=== PATIENT | female | born 1970 | race Caucasian/White ===

== ENCOUNTER 2021-12-09 08:37 | Emergency (ER) | payer OTHER ==
[~2021-12-09] VITALS: Ht 162.5 cm; Wt 89.8 kg
[2021-12-09] MEDS ORDERED: ONDANSETRON 4 MG/2 ML (SDV) Z0FRAN IVP ONE (09:00)
[2021-12-09] MEDS ORDERED: LACTATED RINGERS 1,000 ML IV ONE (09:00)
--- NOTE | 2021-12-09 09:06 | ED Back Pain ---
General Chief Complaint: Abdominal/GI Problems Stated Complaint: LOWER LEFT SIDE BACK PAIN/VOMITING Source of Information: Patient Exam Limitations: No Limitations (ALIYA KILGORE MED STUDENT) History of Present Illness Date Seen by Provider: Dec 09, 2021 Time Seen by Provider: 08:50 Initial Comments Mrs. Robledo is a 51yo female who only has a PMH of depression presents to ED today due to back pain and vomiting. States that she has no hx kindey stones. She does not have a galbladder, appendix, or uterus. Overies still present. States at 0200 this morning she woke up with a sharp pain in her R side of her back. The pain is sharp/stabbing and rates it an 8. When asked if it radiates she states that actually it feels like it could be RLQ pain radiating into her back or vice versa. She has tried ibuprofen and azo with no relief. Did not notice anything that made the pain worse. Has never had pain like this before. 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 She does smoke. NKDA. (ALIYA KILGORE MED STUDENT) Allergies and Home Medications Allergies Coded Allergies: No Known Drug Allergies (Unverified , 12/09/21) Patient Home Medication List Home Medication List Reviewed: Yes (BREANNE GUPTA MD) Cephalexin (Cephalexin) 500 Mg Tablet, 500 MG PO TID Prescribed by: BREANNE HERNANDEZ on 12/09/21 1029 Docusate Sodium (Colace) 100 Mg Capsule, 100 MG PO DAILY Prescribed by: BREANNE HERNANDEZ on 12/09/21 1029 Ondansetron (Ondansetron Odt) 4 Mg Tab.rapdis, 4 MG SL Q4H PRN for NAUS EA/VOMITING Prescribed by: BREANNE HERNANDEZ on 12/09/21 1029 Oxycodone HCl/Acetaminophen (Percocet 5-325 mg Tablet) 1 Each Tablet, 1-2 TAB PO Q4H PRN for PAIN-MODERATE (5-7) Prescribed by: BREANNE HERNANDEZ on 12/09/21 1422 Tamsulosin HCl (Flomax) 0.4 Mg Cap, 0.4 MG PO DAILY Prescribed by: BREANNE HERNANDEZ on 12/09/21 1029 Review of Systems Constitutional: No chills, No malaise EENTM: No hearing loss, No vision loss Respiratory: No cough, No short of breath Cardiovascular: No chest pain, No palpitations Gastrointestinal: abdominal pain (RLQ); No constipation, No diarrhea, No melena; nausea, vomiting Genitourinary: No dysuria, No hematuria : No Musculoskeletal: back pain (R Mid/Lower); No joint pain, No joint swelling Skin: No lesions Psychiatric/Neurological: Denies Headache, Denies Numbness (ALIYA KILGORE) Past Zovxfyd-Pgqhtx-Fxdkhm Hx Patient Social History Tobacco Use?: Yes Tobacco type used: Cigarettes Smoking Status: Current Everyday Smoker Use of E-Cig and/or Vaping dev: No Substance use?: No Alcohol Use?: No Pt feels they are or have been: No (ALIYA KILGORE) Tobacco Use?: Yes Tobacco type used: Cigarettes Smoking Status: Current Everyday Smoker Substance use?: No Alcohol Use?: No (BREANNE GUPTA MD) Past Medical History Surgeries: Yes Appendectomy, Gallbladder, Hysterectomy Respiratory: No Cardiac: No Neurological: No : No Reproductive Disorders: No Genitourinary: No Gastrointestinal: No Musculoskeletal: No Endocrine: No HEENT: No Cancer: No Psychosocial: Yes Depression (BREANNE GUPTA MD) Physical Exam Vital Signs Vital Signs - First Documented 12/09/21 08:47 Temp 36.4 Pulse 77 Resp 16 B/P (MAP) 134/62 (86) Pulse Ox 96 O2 Delivery Room Air (BREANNE GUPTA MD) Vital Signs Capillary Refill : (ALIYA KILGORE) Height, Weight, BMI Height: '" Weight: lbs. oz. kg; BMI Method: General Appearance: WD/WN, Mild Distress HEENT: PERRL/EOMI, Pharynx Normal, Moist Mucous Membranes Cardiovascular: Regular Rate, Rhythm, No Edema, No Murmur, Normal Peripheral Pulses Respiratory: Chest Non Tender, Lungs Clear, Normal Breath Sounds Peripheral Pulses: 2+ Radial Pulses (R), 2+ Radial Pulses (L) Gastrointestinal: Normal Bowel Sounds, Soft; No Guarding; Tenderness (RLQ) Back: Normal Inspection, No Vertebral Tenderness, CVA Tenderness (R) Extremity: Non Tender, No Calf Tenderness, No Pedal Edema Neurologic/Psychiatric: Alert, Oriented x3, No Motor/Sensory Deficits Skin: Normal Color, Warm/Dry (ALIYA KILGORE MED STUDENT) Progress/Results/Core Measures Results/Orders Lab Results Laboratory Tests Test 12/09/21 09:03 12/09/21 09:19 12/09/21 09:24 Range/Units White Blood Count 8.2 4.3-11.0 10^3/uL Red Blood Count 5.34 H 3.80-5.11 10^6/uL Hemoglobin 16.0 11.5-16.0 g/dL Hematocrit 47 35-52 % Mean Corpuscular Volume 89 80-99 fL Mean Corpuscular Hemoglobin 30 25-34 pg Mean Corpuscular Hemoglobin Concent 34 32-36 g/dL Red Cell Distribution Width 12.4 10.0-14.5 % Platelet Count 267 130-400 10^3/uL Mean Platelet Volume 9.2 9.0-12.2 fL Immature Granulocyte % (Auto) 0 % Neutrophils (%) (Auto) 66 42-75 % Lymphocytes (%) (Auto) 26 12-44 % Monocytes (%) (Auto) 6 0-12 % Eosinophils (%) (Auto) 2 0-10 % Basophils (%) (Auto) 1 0-10 % Neutrophils # (Auto) 5.4 1.8-7.8 10^3/uL Lymphocytes # (Auto) 2.2 1.0-4.0 10^3/uL Monocytes # (Auto) 0.5 0.0-1.0 10^3/uL Eosinophils # (Auto) 0.1 0.0-0.3 10^3/uL Basophils # (Auto) 0.1 0.0-0.1 10^3/uL Immature Granulocyte # (Auto) 0.0 0.0-0.1 10^3/uL C-Reactive Protein High Sensitivity 0.32 0.00-0.50 MG/DL Urine Color ORANGE H Urine Clarity VERY CLOUDY H Urine pH 5-9 Urine Specific Thor 1.016-1.022 Urine Protein NEGATIVE Urine Glucose (UA) NEGATIVE Urine Ketones NEGATIVE Urine Nitrite NEGATIVE Urine Bilirubin NEGATIVE Urine Urobilinogen < = 1.0 MG/DL Urine Leukocyte Esterase NEGATIVE Urine RBC (Auto) NEGATIVE Urine RBC TNTC H /HPF Urine WBC 2-5 /HPF Urine Squamous Epithelial Cells 10-25 H /HPF Urine Crystals PRESENT H /LPF Urine Bacteria FEW H /HPF Urine Casts NONE /LPF Urine Mucus NEGATIVE /LPF Urine Culture Indicated YES Sodium Level 141 135-145 MMOL/L Potassium Level 3.9 3.6-5.0 MMOL/L Chloride Level 107 98-107 MMOL/L Carbon Dioxide Level 17 L 21-32 MMOL/L Anion Gap 17 H 5-14 MMOL/L Blood Urea Nitrogen 11 7-18 MG/DL Creatinine 0.70 0.60-1.30 MG/DL Estimat Glomerular Filtration Rate 105 BUN/Creatinine Ratio 16 Glucose Level 137 H 70-105 MG/DL Calcium Level 9.2 8.5-10.1 MG/DL Corrected Calcium 9.0 8.5-10.1 MG/DL Total Bilirubin 0.5 0.1-1.0 MG/DL Aspartate Amino Transf (AST/SGOT) 14 5-34 U/L Alanine Aminotransferase (ALT/SGPT) 24 0-55 U/L Alkaline Phosphatase 46 40-136 U/L Total Protein 7.6 6.4-8.2 GM/DL Albumin 4.3 3.2-4.5 GM/DL (BREANNE GUPTA MD) My Orders Orders - BREANNE GUPTA MD Ua Culture If Indicated (12/09/21 08:41) Cbc No Diff (12/09/21 08:59) Cbc With Automated Diff (12/09/21 08:59) Hs C Reactive Protein (12/09/21 08:59) Ed Iv/Invasive Line Start (12/09/21 08:59) Lactated Ringers (Lr 1000 Ml Iv Solution (12/09/21 09:00) Ondansetron Injection (Zofran Injectio (12/09/21 09:00) Comprehensive Metabolic Panel (12/09/21 09:22) Urine Culture (12/09/21 09:19) Ct Abd/Pelvis Wo(Kidney Stone) (12/09/21 09:39) Ketorolac Injection (Toradol Injection) (12/09/21 09:45) Promethazine Injection (Phenergan Injec (12/09/21 09:45) Abdomen/Kub 1view (12/09/21 10:10) Fentanyl Inj (Sublimaze Injection) (12/09/21 10:30) Oxycodone/Apap 5/325mg Tablet (Percocet (12/09/21 10:30) (BREANNE GUPTA MD) Medications Given in ED (BREANNE GUPTA MD) Vital Signs/I&O 12/09/21 12/09/21 08:47 10:59 Temp 36.4 36.4 Pulse 77 77 Resp 16 16 B/P (MAP) 134/62 (86) 134/62 Pulse Ox 96 96 O2 Delivery Room Air Room Air (BREANNE GUPTA MD) Progress Progress Note #1: Time: 09:46 Progress Note Patient was seen and examined by me along with MS 4. She is in distress from pain at this time. She has received Zofran but still has some refractory nausea. She will be given Toradol for the pain and Phenergan for the remaining nausea. There is a large amount of blood in her urine. Symptoms seem consistent with ureteral stone with sudden onset this morning. Patient is agreeable to CT scan for stone search. IV fluids are infusing. Progress Note #2: Progress Note There was a 4 mm stone in the right proximal ureter causing hydronephrosis. Patient received further treatment with promethazine, fentanyl, and oxycodone. See discharge instructions for further discussion. Patient is from out of town, so she was provided with a CD containing her imaging studies. (BREANNE GUPTA MD) Diagnostic Imaging Diagonstic Imaging: CT Plain Films/CT/US/NM/MRI: abdomen, pelvis Comments CT abdomen and pelvis viewed by me and report reviewed. See report below: NAME: KASEY ROBLEDO [facility] REC#: [id number] PT STATUS: REG ER : 1970 PHYSICIAN: BREANNE GUPTA MD ADMIT DATE: 12/09/21/ER Signed Date of Exam:12/09/21 CT ABD/PELVIS WO(KIDNEY STONE) PROCEDURE: CT urinary tract, rule out kidney stone. TECHNIQUE: Multiple contiguous axial images were obtained through the abdomen and pelvis without the use of intravenous contrast. Auto Exposure Controls were utilized during the CT exam to meet ALARA standards for radiation dose reduction. INDICATION: Abdominal and flank pain. FINDINGS: The lung bases are clear without evidence of pneumonia or an effusion. There is no pericardial collection. The liver demonstrates no evidence of a focal intrahepatic abnormality. Patient is status post cholecystectomy. There is mild post cholecystectomy prominence of the common hepatic and common bile duct but no significant intrahepatic biliary dilatation. The pancreas is normal. The spleen is normal in size. There is no adrenal mass. The left kidney is unremarkable and nonobstructed. The right kidney demonstrates an edematous low-density appearance and demonstrates moderate hydronephrosis which appears secondary to a 4 mm stone at the right ureteropelvic junction. The ureter beyond this stone is normal in caliber. There is no stone within the bladder. There are no findings of bowel obstruction or abnormal bowel thickening. There is moderate stool demonstrated within the colon. There is no free air, free fluid, or abscess. There is no adenopathy. The patient is status post hysterectomy. The right ovary is unremarkable. The left is not evident. There are mild atherosclerotic calcifications within the aorta. There is no acute osseous abnormality. IMPRESSION: 1. Moderate right-sided hydronephrosis and hydroureter secondary to a 4 mm stone at the right ureteropelvic junction. The right kidney appears edematous. 2. Left kidney is unremarkable and nonobstructed. 3. No bowel obstruction. 4. Prior cholecystectomy and hysterectomy. Dictated by: Dictated on workstation # [id number] Dict: 12/09/21 1001 Trans: 12/09/21 1026 [id number] Interpreted by: PIETRO HOLM MD Electronically signed by: PIETRO HOLM MD 12/09/21 1026 Diagonstic Imaging: Xray Plain Films/CT/US/NM/MRI: abdomen, pelvis Comments X-ray viewed by me and report reviewed. See report below: NAME: KASEY ROBLEDO [facility] REC#: [id number] PT STATUS: REG ER : 1970 PHYSICIAN: BREANNE GUPTA MD ADMIT DATE: 12/09/21/ER Draft Date of Exam:12/09/21 ABDOMEN/KUB 1VIEW INDICATION: Abdominal pain. COMPARISON: CT earlier today. DISCUSSION: Two views of the abdomen were obtained. The small stone within the proximal right ureter on the CT is not appreciated by plain film, likely obscured by overlying fecal material within the bowel. Nonobstructed bowel gas pattern. No osseous abnormality. The gallbladder is surgically absent. IMPRESSION: Known stone within the proximal right ureter is not well seen by plain film. Dictated on workstation # [id number] Dict: 12/09/21 1049 Trans: 12/09/21 1052 [id number] Interpreted by: ARIANNA WATERMAN MD (BREANNE GUPTA MD) Departure Impression Primary Impression: Ureteral stone with hydronephrosis Additional Impressions: Right sided abdominal pain Nausea & vomiting Qualified Codes: R11.2 - Nausea with vomiting, unspecified Disposition: 01 HOME, SELF-CARE Condition: Improved Departure-Patient Inst. Referrals: NO,LOCAL PHYSICIAN (PCP) Primary Care Physician MARK WINSTON MD Patient Instructions: Kidney Stone Diet, Kidney Stone, Adult ED Add. Discharge Instructions: You have a 4 mm kidney stone high in the right ureter. This may pass on its own. Please strain your urine and bring any stone collected with you to your follow-up appointment. Please follow-up with your primary care provider and/or a urologist as soon as possible. Call Saturday to schedule the appointment. If you are still in the [place] area on Saturday, you may call Dr. Winston for follow-up. Bring a copy of these discharge papers as well as the CD of radiology images with you to the follow-up appointment. You may use the Zofran (ondansetron) as prescribed for nausea vomiting. You have been prescribed Keflex (cephalexin) antibiotic to prevent infection because you have urinary obstruction with this kidney stone. You may use Percocet (oxycodone/acetaminophen) 1 to 2 tablets every 4 hours as needed for pain. This medication may cause drowsiness and constipation. Use with caution. You may wish to use Colace stool softener once or twice a day to prevent constipation while using this medication. You have additionally been prescribed Flomax which may help you pass this stone. Drink plenty of clear liquids to stay well-hydrated and to help flush out the kidney stone. Return to care if you have worsening symptoms despite following these instructions or if you develop new symptoms such as fever. Call with questions or concerns. All discharge instructions reviewed with patient and/or family. Voiced understanding. Scripts Oxycodone HCl/Acetaminophen (Percocet 5-325 mg Tablet) 1 Each Tablet 1-2 TAB PO Q4H PRN for PAIN-MODERATE (5-7) MDD 6 TABS, #20 TAB Prov: BREANNE GUPTA MD 12/09/21 Tamsulosin HCl (Flomax) 0.4 Mg Cap 0.4 MG PO DAILY, #10 CAP Prov: BREANNE GUPTA MD 12/09/21 Cephalexin (Cephalexin) 500 Mg Tablet 500 MG PO TID, #30 TAB Prov: BREANNE GUPTA MD 12/09/21 Docusate Sodium (Colace) 100 Mg Capsule 100 MG PO DAILY, #10 CAP Prov: BREANNE GUPTA MD 12/09/21 Ondansetron (Ondansetron Odt) 4 Mg Tab.rapdis 4 MG SL Q4H PRN for NAUSEA/VOMITING, #10 TAB Prov: BREANNE GUPTA MD 12/09/21 Medical Student Attestation and Attending Note: I have personally interviewed and examined this patient along with Aliya Kilgore, MS 4. I have reviewed student documentation including history, physical, and assessments. I agree with the documentation except where otherwise noted. Exam: General: Alert, oriented, moderate acute distress, well developed HEENT: Normocephalic and atraumatic Heart: Regular rate and rhythm without murmur Lungs: Clear to auscultation bilaterally with normal effort Abdomen: Neuropsych: Alert, oriented, no focal deficits Skin: Warm and dry without rashes (BREANNE GUPTA MD) ALIYA KILGORE MED STUDENT Dec 09, 2021 09:06 BREANNE GUPTA MD Dec 09, 2021 09:49
[2021-12-09 09:08] LABS: BASOPHILS # (AUTO) 0.1 10^3/uL (0.0-0.1); BASOPHILS % (AUTO) 1 % (0-10); EOSINOPHILS # (AUTO) 0.1 10^3/uL (0.0-0.3); EOSINOPHILS % (AUTO) 2 % (0-10); HEMATOCRIT 47 % (35-52); LYMPHOCYTES # (AUTO) 2.2 10^3/uL (1.0-4.0); LYMPHOCYTES % (AUTO) 26 % (12-44); MEAN CORPUSCULAR HEMOGLOBIN 30 pg (25-34); MEAN CORPUSCULAR HGB CONC 34 g/dL (32-36); MEAN CORPUSCULAR VOLUME 89 fL (80-99); MEAN PLATELET VOLUME 9.2 fL (9.0-12.2); MONOCYTES # (AUTO) 0.5 10^3/uL (0.0-1.0); MONOCYTES % (AUTO) 6 % (0-12); NEUTROPHILS # (AUTO) 5.4 10^3/uL (1.8-7.8); NEUTROPHILS % (AUTO) 66 % (42-75); PLATELET COUNT 267 10^3/uL (130-400); WHITE BLOOD COUNT 8.2 10^3/uL (4.3-11.0)
[2021-12-09 09:31] LABS: ALBUMIN 4.3 GM/DL (3.2-4.5)
[2021-12-09 09:32] LABS: POTASSIUM 3.9 MMOL/L (3.6-5.0)
[2021-12-09 09:33] LABS: CALCIUM 9.2 MG/DL (8.5-10.1)
[2021-12-09 09:34] LABS: TOTAL PROTEIN 7.6 GM/DL (6.4-8.2)
[2021-12-09 09:35] LABS: CLARITY,URINE VERY CLOUDY; COLOR,URINE ORANGE
[2021-12-09 09:36] LABS: BILIRUBIN,TOTAL 0.5 MG/DL (0.1-1.0)
[2021-12-09 09:36] LABS: BACTERIA,URINE FEW /HPF; RBC,URINE TNTC /HPF
[2021-12-09 09:38] LABS: CREATININE SERUM 0.7 MG/DL (0.60-1.30)
[2021-12-09] MEDS ORDERED: KETOROLAC 30 MG/ML VIAL IVP ONE (09:45)
[2021-12-09] MEDS ORDERED: PROMETHAZINE INJ 25 MG/ML (PHENERGAN) AMP ONE (09:45)
--- NOTE | 2021-12-09 10:26 | Diagnostic Imaging Report ---
PROCEDURE: CT urinary tract, rule out kidney stone. TECHNIQUE: Multiple contiguous axial images were obtained through the abdomen and pelvis without the use of intravenous contrast. Auto Exposure Controls were utilized during the CT exam to meet ALARA standards for radiation dose reduction. INDICATION: Abdominal and flank pain. FINDINGS: The lung bases are clear without evidence of pneumonia or an effusion. There is no pericardial collection. The liver demonstrates no evidence of a focal intrahepatic abnormality. Patient is status post cholecystectomy. There is mild post cholecystectomy prominence of the common hepatic and common bile duct but no significant intrahepatic biliary dilatation. The pancreas is normal. The spleen is normal in size. There is no adrenal mass. The left kidney is unremarkable and nonobstructed. The right kidney demonstrates an edematous low-density appearance and demonstrates moderate hydronephrosis which appears secondary to a 4 mm stone at the right ureteropelvic junction. The ureter beyond this stone is normal in caliber. There is no stone within the bladder. There are no findings of bowel obstruction or abnormal bowel thickening. There is moderate stool demonstrated within the colon. There is no free air, free fluid, or abscess. There is no adenopathy. The patient is status post hysterectomy. The right ovary is unremarkable. The left is not evident. There are mild atherosclerotic calcifications within the aorta. There is no acute osseous abnormality. IMPRESSION: 1. Moderate right-sided hydronephrosis and hydroureter secondary to a 4 mm stone at the right ureteropelvic junction. The right kidney appears edematous. 2. Left kidney is unremarkable and nonobstructed. 3. No bowel obstruction. 4. Prior cholecystectomy and hysterectomy. Dictated by: Dictated on workstation # [id number]
[2021-12-09] MEDS ORDERED: DOCU-143 PO (10:29)
[2021-12-09] MEDS ORDERED: OXYC1TAB87 PO ×2 (10:29→14:15)
[2021-12-09] MEDS ORDERED: TMSL.4C PO (10:29)
[2021-12-09] MEDS ORDERED: ONDA4TAB11 SL (10:29)
[2021-12-09] MEDS ORDERED: CEPH500T PO (10:29)
[2021-12-09] MEDS ORDERED: fentaNYL INJ 100 MCG/2 ML AMP IVP ONE (10:30)
[2021-12-09] MEDS ORDERED: oxyCODONE/APAP 5/325MG (PERCOCET 5) TABLET PO ONE (10:30)
--- NOTE | 2021-12-09 10:52 | Diagnostic Imaging Report ---
INDICATION: Abdominal pain. COMPARISON: CT earlier today. DISCUSSION: Two views of the abdomen were obtained. The small stone within the proximal right ureter on the CT is not appreciated by plain film, likely obscured by overlying fecal material within the bowel. Nonobstructed bowel gas pattern. No osseous abnormality. The gallbladder is surgically absent. IMPRESSION: Known stone within the proximal right ureter is not well seen by plain film. Dictated by: Dictated on workstation # [id number]
[2021-12-09 10:59] VITALS: BP 134/62
== END 2021-12-09 10:59 | disposition home or self-care (01) ==
LOC: ER 08:41
DX: N13.2 Hydronephrosis with renal and ureteral calculous obstruction (principal); F17.210 Nicotine dependence, cigarettes, uncomplicated
CPT/HCPCS: 36415; 74018; 74176; 80053; 81000; 85025; 85027; 86141; 87088